=== PATIENT | female | born 1955 | race Caucasian/White ===

== ENCOUNTER 2017-04-17 14:07 | Emergency (ER) | payer OTHER ==
--- NOTE | 2017-04-17 14:52 | RAD ---
RIGHT FOOT 3 VIEWS: HISTORY: Pain. COMPARISON: None. FINDINGS: There is mild interphalangeal joint space narrowing of all digits. Lisfranc interval is maintained. Small phleboliths in the anterior soft tissues of the lower extremity. Small capsular calcification . IMPRESSION: No acute abnormality. POS: [facility]
[2017-04-17] MEDS ORDERED: HYDROcodone/Acetaminophen 10/325 mg Tablet ONE (15:27)
[2017-04-17] MEDS ORDERED: Naproxen 500 MG TAB ONE (15:28)
== END 2017-04-17 15:30 | disposition home or self-care (01) ==
LOC: MADERS 14:07
DX: S92.341A Displaced fracture of fourth metatarsal bone, right foot, initial encounter for closed fracture (principal); S92.351A Displaced fracture of fifth metatarsal bone, right foot, initial encounter for closed fracture; F17.210 Nicotine dependence, cigarettes, uncomplicated; W18.2XXA Fall in (into) shower or empty bathtub, initial encounter

== ENCOUNTER 2017-07-04 07:55 | Emergency (ER) | payer OTHER ==
[2017-07-04] MEDS ORDERED: Sodium Chloride 0.9% 100 ML BAG ONE (08:19)
[2017-07-04 08:22] LABS: #Basophils 0.1 thou/uL (0.0-0.2); #Eosinphils 0.1 thou/uL (0.0-0.7); #Lymphocytes 1.5 thou/uL (1.20-3.40); #Monocytes 0.8 thou/uL (0.11-0.59); #Neutrophils 9.7 thou/uL (1.40-6.50); %Basophils 0.8 % (0.0-1.0); %Eosinophils 0.6 % (0.0-10.0); %Lymphocytes 12.1 % (21.0-51.0); %Monocytes 6.9 % (0.0-10.0); %Neutrophils 79.6 % (42.0-75.0); Hemoglobin 16.2 g/dL (12.0-16.0); White Blood Cell (WBC) Count 12.2 thou/uL (4.8-10.8)
[2017-07-04] MEDS ORDERED: Morphine 4 MG/ML VIAL ONE (08:23)
[2017-07-04] MEDS ORDERED: methylPREDNISolone Sod Succ/PF 125 MG/2 ML VIAL ONE (08:23)
--- NOTE | 2017-07-04 08:34 | RAD ---
PORTABLE AP CHEST: Date: 07-04-17 History: Dyspnea. Comparison: 12-24-13 FINDINGS: Nodular densities project over the mid chest bilaterally. Nipple markers were placed over these nodul ar densities on prior study showing that these represent nipple shadows. Lungs are otherwise clear an d expanded. Cardiac silhouette and pulmonary vasculature are within normal limits. Lungs are clear. T here has been no interval change from the prior study. IMPRESSION: No acute cardiopulmonary process. POS: [facility]
[2017-07-04 08:40] LABS: Anion Gap 16 mmol/L (10-20); BUN (Urea Nitrogen) 8 mg/dL (9.8-20.1); Calc. Creatinine Clearance 0 mL/min (70-130); Calcium 9.3 mg/dL (7.8-10.44); Carbon Dioxide 28 mmol/L (23-31); Chloride 95 mmol/L (98-107); Estimated GFR-MDRD Greater than 90; Glucose 115 mg/dL (80-115); Potassium 3.7 mmol/L (3.5-5.1); Sodium 135 mmol/L (136-145)
[2017-07-04 08:41] LABS: CKMB 5.2 ng/mL (0-6.6); Troponin I Less than 0.010 ng/mL (< 0.028)
[2017-07-04 08:42] LABS: Mean Corpuscular HGB CONC 35.1 g/dL (32.0-36.0); Mean Corpuscular Hemoglobin 35.6 pg (27.0-31.0); Mean Corpuscular Volume 101.3 fl (81.0-99.0); Mean Platelet Volume 7.4 fL (7.4-10.4); Platelet Count 407 thou/uL (130-400); RBC Distribution Width 10.8 % (11.5-14.5); Red Blood Cell (RBC) Count 4.57 mill/uL (4.20-5.40)
[2017-07-04] MEDS ORDERED: cefTRIAXone\\ROCEPHIN 1 GM VIAL ONE (09:30)
== END 2017-07-04 09:58 | disposition home or self-care (01) ==
LOC: MADERS 07:55
DX: J44.1 Chronic obstructive pulmonary disease with (acute) exacerbation (principal); F17.210 Nicotine dependence, cigarettes, uncomplicated; Z79.899 Other long term (current) drug therapy
CPT/HCPCS: 71045; 80048; 82553; 83880; 84484; 85025; 94640; 94760; 96374; 96375; J0696; J2270; J2930; J7050; J7620

== ENCOUNTER 2018-11-28 10:20 | Outpatient (CLI) | payer OTHER ==
--- NOTE | 2018-11-28 12:26 | RAD ---
CHEST PA AND LATERAL TWO VIEWS: History: Acute bronchitis. Comparison: 07-04-17 FINDINGS: There is some horizontal to oblique linear and parenchymal changes overlying the upper mid left chest , new from prior study, but having an old chronic appearance. Evidence for bilateral nipple shadows. Small nodular density overlying the right lateral lower chest which has a density suggesting that of a calcification, but this appears to be new. This could represent a calcified granuloma or may repres ent a right breast calcification. No evidence for confluent pneumonia. IMPRESSION: Horizontal to oblique linear and parenchymal changes overlying the left mid upper lung zone having mo re of a chronic appearance versus subsegmental atelectasis. No confluent pneumonia. Nodular density o verlying the right lower lateral chest with an overall density that suggests calcification, possibly a granuloma calcification or possibly a calcification in the right breast. Evidence for bilateral nip ple shadows. Since these findings in the right and left chest are new from a prior 2018 study I would consider obt aining a nonemergent follow up chest CT scan for further assessment. No confluent pneumonia. Code T POS: [facility]
== END 2018-11-28 10:21 | disposition home or self-care (01) ==
LOC: MADRAD 10:20
PROVIDERS: ATTEND Family Medicine
DX: J44.0 Chronic obstructive pulmonary disease with (acute) lower respiratory infection (principal); J20.9 Acute bronchitis, unspecified
CPT/HCPCS: 71046

== ENCOUNTER 2018-12-06 08:24 | Outpatient (CLI) | payer OTHER ==
--- NOTE | 2018-12-06 10:36 | CT ---
CT CHEST WITH CONTRAST: HISTORY: Abnormal chest x-ray. COMPARISON: Radiograph from 11/28/2018. FINDINGS: There is minimal linear density within the left upper lobe, which is linear and likely sequelae of at electatic change. There is an abnormal nodule in the right lower lobe, lateral basal, measuring 11 m m. Moderate background central lobular and paraseptal emphysema. No mediastinal adenopathy. No pericardial effusion. The thyroid is unremarkable. The thoracic spine is without compression fracture. No acute displaced rib fracture. IMPRESSION: 1. The linear band-like opacity in the left upper lobe is likely sequela of scarring versus atelecta tic change with peripheral round atelectasis. Bronchoscopy is recommended. 2. Abnormal nodule, right lower lobe, lateral basal segment, measuring 11 mm. This is concerning fo r an underlying malignant process. PET CT may be beneficial. Pulmonary consultation advised. 3. Severe background centrilobular emphysema. 4. No mediastinal or supraclavicular adenopathy. POS: [facility]
[2018-12-06] MEDS ORDERED: Iopamidol 370 76% 100 ML VIAL ONE (11:26)
== END 2018-12-06 08:25 | disposition home or self-care (01) ==
LOC: MADCT 08:24
PROVIDERS: ATTEND Family Medicine
DX: R93.89 Abnormal findings on diagnostic imaging of other specified body structures (principal); J43.2 Centrilobular emphysema; R91.1 Solitary pulmonary nodule; R91.8 Other nonspecific abnormal finding of lung field
CPT/HCPCS: 71260; Q9967

== ENCOUNTER 2018-12-13 10:38 | Outpatient (CLI) | payer OTHER ==
[2018-12-13 11:09] LABS: CKMB 6.1 ng/mL (0-6.6); Troponin I Less than 0.010 ng/mL (< 0.028)
== END 2018-12-13 10:39 | disposition home or self-care (01) ==
LOC: MADLABBHPM 10:38
PROVIDERS: ATTEND Family Medicine
DX: R91.1 Solitary pulmonary nodule (principal)
CPT/HCPCS: 36415; 82553; 84484; 93005; 93010

== ENCOUNTER 2020-04-18 18:26 | Emergency (ER) | payer OTHER ==
[2020-04-18] MEDS ORDERED: Levofloxacin 500 mg/D5W 100 ml Premix Bag ONE (18:58)
[2020-04-18] MEDS ORDERED: methylPREDNISolone Sod Succ/PF 125 MG/2 ML VIAL ONE ×3 (18:58→19:25)
[2020-04-18 18:59] LABS: #Basophils 0.1 thou/uL (0.0-0.2); #Eosinphils 0.1 thou/uL (0.0-0.7); #Lymphocytes 1.3 thou/uL (1.20-3.40); #Monocytes 0.8 thou/uL (0.11-0.59); #Neutrophils 6.9 thou/uL (1.40-6.50); %Basophils 0.9 % (0.0-1.0); %Eosinophils 0.6 % (0.0-10.0); %Lymphocytes 14.1 % (21.0-51.0); %Monocytes 8.7 % (0.0-10.0); %Neutrophils 75.8 % (42.0-75.0); Hemoglobin 14.9 g/dL (12.0-16.0); Mean Corpuscular HGB CONC 33.4 g/dL (32.0-36.0); Mean Corpuscular Hemoglobin 33.8 pg (27.0-31.0); Mean Corpuscular Volume 101.4 fL (78.0-98.0); Mean Platelet Volume 9.1 fL (7.4-10.4); Platelet Count 241 thou/uL (130-400); RBC Distribution Width 10.6 % (11.5-14.5); Red Blood Cell (RBC) Count 4.39 mill/uL (4.20-5.40)
[2020-04-18 19:18] LABS: ALT (SGPT) 32 U/L (8-55); AST (SGOT) 42 U/L (5-34); Albumin 4.7 g/dL (3.4-4.8); Alkaline Phosphatase 65 U/L (40-110); Anion Gap 19 mmol/L (10-20); BUN (Urea Nitrogen) 10 mg/dL (9.8-20.1); Bilirubin, Total 0.7 mg/dL (0.2-1.2); CK (CPK) 347 U/L (29-168); Calc. Creatinine Clearance 0 mL/min (70-130); Calcium 9.6 mg/dL (7.8-10.44); Carbon Dioxide 28 mmol/L (23-31); Chloride 95 mmol/L (98-107); Estimated GFR-MDRD 87; Globulin 2.7 g/dL (2.4-3.5); Glucose 134 mg/dL (80-115); Potassium 4.5 mmol/L (3.5-5.1); Protein, Total 7.4 g/dL (6.0-8.3); Sodium 137 mmol/L (136-145)
--- NOTE | 2020-04-18 19:19 | RAD ---
PORTABLE CHEST: 04/18/20 HISTORY: Dyspnea. COMPARISON: 11/28/18 chest x-ray. Heart size within normal limits. There are atherosclerotic changes of the aorta. Chronic lung changes are seen. A right lower lobe pulmonary nodule again identified. Also an area of nodularity along the left heart border. This could possibly be related to nipple shadow. A chest CT did not show any abnormality in this region. Nodular density in the left lung apex is stable. IMPRESSION: Marked chronic lung change. No definite acute process. POS: [facility]
[2020-04-18] MEDS ORDERED: Sodium Chloride 0.9% 1,000 ML ONE (19:25)
[2020-04-18 19:37] LABS: Base Excess-Venous 1.5 mmol/L (-2.0 to 3.0); Bicarbonate (HCO3v) 31.5 mmol/L (22.0-28.0); CO2 Tension (PvCO2) 72.7 mmHg (40.0-50.0); Chloride 97 mmol/L (98-107); Hemoglobin - Calc 15.7 g/dL (12.0-16.0); Potassium 4.3 mmol/L (3.5-5.1); Sodium 135 mmol/L (138-145); vO2 Saturation-calc 99.3 % (60.0-85.0)
[2020-04-18 19:38] LABS: Calcium, Ionized 1.21 mmol/L (1.15-1.33); T. Carbon Dioxide 33.7 mmol/L (22.0-28.0)
[2020-04-18 20:10] LABS: CKMB 5.7 ng/mL (0-6.6)
[2020-04-18] MEDS ORDERED: Aspirin Chewable 81 MG TAB ONE (20:25)
[2020-04-18] MEDS ORDERED: Enoxaparin Sodium 60 MG/0.6 ML SYRINGE ONE (20:59)
== END 2020-04-18 21:02 | disposition short-term general hospital (02) ==
LOC: MADERS 18:26
DX: J44.1 Chronic obstructive pulmonary disease with (acute) exacerbation (principal); I21.4 Non-ST elevation (NSTEMI) myocardial infarction; R06.03 Acute respiratory distress; F17.210 Nicotine dependence, cigarettes, uncomplicated; Z79.51 Long term (current) use of inhaled steroids; Z79.899 Other long term (current) drug therapy; Z86.73 Personal history of transient ischemic attack (TIA), and cerebral infarction without residual deficits
CPT/HCPCS: 36415; 71045; 80053; 82330; 82550; 82553; 82803; 83880; 84484; 85014; 85025; 85379; 87040; 93005; 96365; 96372; 96375; J1650; J1956; J2930; J7050; J7620

== ENCOUNTER 2021-12-18 07:29 | Emergency (ER) | payer OTHER ==
[2021-12-18] MEDS ORDERED: Iopamidol 370 76% 100 ML VIAL ONE (08:22)
[2021-12-18 08:58] LABS: #Lymphocytes 0.5 thou/uL (1.20-3.40); #Monocytes 0.7 thou/uL (0.11-0.59); #Neutrophils 4.4 thou/uL (1.40-6.50); %Basophils 0.6 % (0.0-1.0); %Eosinophils 0.9 % (0.0-10.0); %Lymphocytes 8.6 % (21.0-51.0); %Monocytes 11.9 % (0.0-10.0); Mean Corpuscular HGB CONC 34.5 g/dL (32.0-36.0); Mean Corpuscular Hemoglobin 32.2 pg (27.0-31.0); Mean Corpuscular Volume 93.4 fL (78.0-98.0); Mean Platelet Volume 8.4 fL (7.4-10.4); Platelet Count 232 thou/uL (130-400); RBC Distribution Width 10.3 % (11.5-14.5); Red Blood Cell (RBC) Count 3.73 mill/uL (4.20-5.40); White Blood Cell (WBC) Count 5.6 thou/uL (4.8-10.8)
[2021-12-18 09:12] LABS: CRP (Inflammatory) 2.29 mg/dL (= or < 0.5)
[2021-12-18 09:14] LABS: ALT (SGPT) 31 U/L (8-55); AST (SGOT) 30 U/L (5-34); Alkaline Phosphatase 59 U/L (40-110); Anion Gap 13 mmol/L (10-20); BUN (Urea Nitrogen) 5 mg/dL (9.8-20.1); Bilirubin, Total 0.9 mg/dL (0.2-1.2); Calc. Creatinine Clearance 0 mL/min (70-130); Calcium 9.3 mg/dL (7.8-10.44); Carbon Dioxide 35 mmol/L (23-31); Chloride 86 mmol/L (98-107); Globulin 2.5 g/dL (2.4-3.5); Glucose 104 mg/dL (80-115); Potassium 3.8 mmol/L (3.5-5.1); Protein, Total 6.5 g/dL (5.8-8.1); Sodium 130 mmol/L (136-145)
[2021-12-18] MEDS ORDERED: Sodium Chloride 0.9% 1,000 ML ONE (09:51)
[2021-12-18] MEDS ORDERED: Magnesium Citrate 300 ML BOT ONE (10:33)
== END 2021-12-18 11:00 | disposition home or self-care (01) ==
LOC: MADERS 07:29
DX: K59.00 Constipation, unspecified (principal); E87.1 Hypo-osmolality and hyponatremia; R91.8 Other nonspecific abnormal finding of lung field; M54.50 Low back pain, unspecified; E78.5 Hyperlipidemia, unspecified; J44.9 Chronic obstructive pulmonary disease, unspecified; F17.210 Nicotine dependence, cigarettes, uncomplicated; W19.XXXA Unspecified fall, initial encounter
CPT/HCPCS: 36415; 71260; 74177; 80053; 82550; 83605; 85025; 86140; 96360; J7050; Q9967

== ENCOUNTER 2022-02-02 09:12 | Emergency (ER) | payer MEDICARE, OTHER ==
[2022-02-02] MEDS ORDERED: Sodium Chloride 0.9% 500 ML ONE (09:46)
[2022-02-02 09:59] LABS: #Lymphocytes 0.3 thou/uL (1.20-3.40); #Monocytes 0.4 thou/uL (0.11-0.59); #Neutrophils 6.5 thou/uL (1.40-6.50); %Basophils 0.5 % (0.0-1.0); %Eosinophils 0.1 % (0.0-10.0); %Lymphocytes 3.4 % (21.0-51.0); %Monocytes 6.1 % (0.0-10.0); %Neutrophils 89.8 % (42.0-75.0); Hemoglobin 12.3 g/dL (12.0-16.0); Mean Corpuscular HGB CONC 32.7 g/dL (32.0-36.0); Mean Corpuscular Hemoglobin 32.8 pg (27.0-31.0); Mean Corpuscular Volume 100.2 fL (78.0-98.0); Mean Platelet Volume 9.5 fL (7.4-10.4); Platelet Count 188 thou/uL (130-400); RBC Distribution Width 11.3 % (11.5-14.5); Red Blood Cell (RBC) Count 3.74 mill/uL (4.20-5.40); White Blood Cell (WBC) Count 7.3 thou/uL (4.8-10.8)
[2022-02-02 10:13] LABS: ALT (SGPT) 34 U/L (8-55); AST (SGOT) 41 U/L (5-34); Albumin 4.3 g/dL (3.4-4.8); Alkaline Phosphatase 74 U/L (40-110); Anion Gap 15 mmol/L (10-20); BUN (Urea Nitrogen) 13 mg/dL (9.8-20.1); Bilirubin, Total 2.2 mg/dL (0.2-1.2); Calc. Creatinine Clearance 0 mL/min (70-130); Calcium 9.6 mg/dL (7.8-10.44); Carbon Dioxide 31 mmol/L (23-31); Chloride 92 mmol/L (98-107); Estimated GFR 101; Globulin 2.5 g/dL (2.4-3.5); Glucose 115 mg/dL (80-115); Magnesium 1.8 mg/dL (1.6-2.6); Potassium 3.9 mmol/L (3.5-5.1); Protein, Total 6.8 g/dL (5.8-8.1); Sodium 134 mmol/L (136-145)
[2022-02-02 10:30] LABS: SARS-CoV-2 NAA Rapid Test Not Detected (NotDetected)
== END 2022-02-02 13:15 | disposition short-term general hospital (02) ==
LOC: MADERS 09:12
DX: S80.01XA Contusion of right knee, initial encounter (principal); J44.1 Chronic obstructive pulmonary disease with (acute) exacerbation; R26.89 Other abnormalities of gait and mobility; E78.5 Hyperlipidemia, unspecified; E78.00 Pure hypercholesterolemia, unspecified; F17.210 Nicotine dependence, cigarettes, uncomplicated; W19.XXXA Unspecified fall, initial encounter; Z20.822 Contact with and (suspected) exposure to COVID-19; Z86.73 Personal history of transient ischemic attack (TIA), and cerebral infarction without residual deficits; Z79.899 Other long term (current) drug therapy
CPT/HCPCS: 36415; 71045; 80053; 83735; 83880; 84484; 85025; 93005; 96365; J1956; J7030; J7620; U0002